=== PATIENT | male | born 1985 | race Caucasian/White ===

== ENCOUNTER 2017-06-30 07:18 | Emergency (ER) | payer BC, SELFPAY ==
[~2017-06-30] VITALS: Ht 177.8 cm; Wt 137.9 kg
[2017-06-30] MEDS ORDERED: ADV250INH INH ×2 (07:29→08:52)
[2017-06-30] MEDS ORDERED: ALBU83IN INH (07:29)
[2017-06-30] MEDS ORDERED: PROAAER10 INH ×2 (07:29→08:52)
[2017-06-30] MEDS ORDERED: methylPREDNISolone INJ 125 MG/2 ML VIAL (J2930) IV ONE (07:45)
[2017-06-30] MEDS ORDERED: IPRATROPIUM 0.5MG/ALBUTEROL 2.5MG INH SOL UD 3ML (DUONEB)(J7620) NEB ONE (07:45)
[2017-06-30] MEDS ORDERED: ALBUTEROL SULFATE 2.5 MG/0.5 ML INH NEB SOLN INH ONE (07:45)
--- NOTE | 2017-06-30 08:26 | REP ---
Chest x-ray: Two views. History: Dyspnea and cough. . Comparison study: No comparison study . Findings: The lungs are well inflated and free of infiltrate. The pleural angles are sharp. The heart size is normal. Pulmonary vasculature is not increased. No significant bony abnormality is seen. Impression: Negative chest x-ray. Signed by Ben Hansen MD 06/30/2017 08:17 A
[2017-06-30] MEDS ORDERED: PRED20TA PO (08:52)
[2017-06-30 08:57] VITALS: BP 135/74
== END 2017-06-30 09:08 | disposition home or self-care (01) ==
LOC: M ED 07:18
DX: J45.901 Unspecified asthma with (acute) exacerbation (principal); Z87.442 Personal history of urinary calculi
CPT/HCPCS: 71020; 94640; 96374; 99284; J2930

== ENCOUNTER 2017-08-08 09:39 | Emergency (ER) | payer BC ==
[2017-08-08] MEDS ORDERED: CLINDAMYCIN 150 MG CAP PO (10:30)
[2017-08-08] MEDS ORDERED: IBUPROFEN 600 MG TAB PO (10:30)
== END 2017-08-08 10:29 | disposition home or self-care (01) ==
LOC: M ED 09:39
DX: K04.7 Periapical abscess without sinus (principal); K02.9 Dental caries, unspecified; K08.89 Other specified disorders of teeth and supporting structures; J45.909 Unspecified asthma, uncomplicated; Z87.442 Personal history of urinary calculi; Z79.899 Other long term (current) drug therapy
CPT/HCPCS: 99283

== ENCOUNTER 2018-04-17 20:22 | Emergency (ER) | payer BC ==
[2018-04-17] MEDS: IPRATROPIUM 0.5MG/ALBUTEROL 2.5MG INH SOL UD 3ML (DUONEB)(J7620) NEB (21:49)
[2018-04-17] MEDS: predniSONE 20 MG TAB PO (21:51)
== END 2018-04-17 22:23 | disposition home or self-care (01) ==
LOC: M ED 20:22
DX: J45.901 Unspecified asthma with (acute) exacerbation (principal); Z76.0 Encounter for issue of repeat prescription; Z79.899 Other long term (current) drug therapy
CPT/HCPCS: 94640

== ENCOUNTER → 2021-10-09 | Outpatient (CLI) | payer BC ==
[~2021-10-09] MED LIST: ADV250INH INH; ALBU83IN INH; IBUP-1022 PO; NORC1TAB7 PO; PENI500T OR; PRED20TA PO; PROAAER10 INH
== END ==
LOC: M PLAIMG 11:01
PROVIDERS: ATTEND Physician Assistant
DX: N20.1 Calculus of ureter (principal)

== ENCOUNTER → 2021-10-17 | Outpatient (CLI) | payer BC | LOC: M PLAIMG 09:52 | PROVIDERS: ATTEND Physician Assistant | DX: N20.1 Calculus of ureter (principal) ==